=== PATIENT | female | born 1980 | race Caucasian/White ===

== ENCOUNTER → 2017-01-15 | Outpatient (CLI) | payer OTHER | LOC: FIMAGING 13:46 | PROVIDERS: ATTEND Obstetrics & Gynecology | DX: O09.523 Supervision of elderly multigravida, third trimester (principal); O09.213 Supervision of pregnancy with history of pre-term labor, third trimester; Z3A.32 32 weeks gestation of pregnancy ==

== ENCOUNTER → 2017-02-11 | Outpatient (CLI) | payer OTHER | LOC: FIMAGING 13:56 | PROVIDERS: ATTEND Obstetrics & Gynecology | DX: O09.523 Supervision of elderly multigravida, third trimester (principal); Z3A.36 36 weeks gestation of pregnancy ==

== ENCOUNTER 2017-03-05 09:08 | Inpatient (IN) | payer OTHER ==
[2017-03-05] MEDS ORDERED: LIDOCAINE 1% 30 ML SDV SC PRN (09:29)
[2017-03-05] MEDS ORDERED: OLIVE OIL 118 ML BTL MISC PRN (09:29)
[2017-03-05] MEDS ORDERED: EPSOM SALT 454 GM TP PRN (09:29)
[2017-03-05] MEDS ORDERED: OXYTOCIN/RINGERS LACTATE 1,000 ML IV PRN (09:29)
[2017-03-05] MEDS ORDERED: TERBUTALINE SULFATE 1 MG/ML VIAL IV PRN (09:29)
[2017-03-05] MEDS ORDERED: LR 1,000 ML IV PRN (09:29)
[2017-03-05] MEDS ORDERED: OXYTOCIN/LR *STANDARD DOSE PROTOCOL IV SCH (09:30)
[2017-03-05 11:05] LABS: % IMMATURE GRANULYOCYTES 0.6 % (0.0-1.1); ABSOLUTE IMMATURE GRANULOCYTES 0.06 10^3/uL (0.00-0.10); ADD DIFF? NO; ADD MORPH? NO; ADD SCAN? NO; ATYPICAL LYMPHOCYTE FLAG 20 (0-99); FRAGMENT RBC FLAG 0 (0-99); HEMATOCRIT 37.9 % (38.0-47.0); HEMOGLOBIN 12.7 g/dL (12.6-16.3); LEFT SHIFT FLG 0 (0-99); LIPEMIA HEMOLYSIS FLAG 80 (0-99); MEAN CELL HEMOGLOBIN 32.8 pg (27.9-34.1); MEAN CELL HEMOGLOBIN CONCENTR. 33.5 g/dL (32.4-36.7); MEAN CELL VOLUME 97.9 fL (81.5-99.8); MEAN PLATELET VOLUME 10.7 fL (8.7-11.7); PLATELET CLUMPS FLAG 0 (0-99); PLATELET COUNT 201 10^3/uL (150-400); RED BLOOD CELL COUNT 3.87 10^6/uL (4.18-5.33)
[2017-03-05] MEDS ORDERED: LIDOCAINE 1% 30 ML SDV ONE (12:05)
[2017-03-05] MEDS ORDERED: OLIVE OIL 118 ML BTL ONE (12:06)
[2017-03-05] MEDS ORDERED: AMMONIA AROMATIC 1 EACH AMP IH ONE (12:06)
[2017-03-05] MEDS ORDERED: TERBUTALINE SULFATE 1 MG/ML VIAL ONE (12:06)
[2017-03-05] MEDS ORDERED: OXYTOCIN 10 UNIT/ML VIAL ONE (12:07)
[2017-03-05] MEDS ORDERED: MISOPROSTOL 200 MCG TAB ONE (12:07)
--- NOTE | 2017-03-05 13:42 | OBPROG ---
OBG Progress Note Assessment/Plan: Assessment: 36 yo @ 39 4/7, elective IOL Plan: 03/05/17 13:41 FWB reassuring. GBS neg. Expect . Subjective: 36 yo @ 39 4/7, elective IOL Objective: 03/05/17 10:30 Patient ABO/Rh A POSITIVE 03/05/17 10:30 VSS - SVE Dilation (cm): 3 Effacement (%): 50 Station: -2 Current Contraction Pattern: Regular FHR (bpm): 140 FHR Pattern Variability: Moderate FHR Category: 2 Membranes: AROM Amniotic Fluid Color: Clear ICD10 Worksheet Patient Problems: Problems Problem Status Onset Labor established Acute
[2017-03-05] MEDS ORDERED: BUPIVACAINE 0.25% 30 ML SDV ONE (14:03)
[2017-03-05] MEDS ORDERED: fentaNYL 2MCG/ML/BUP 0.1% RTU 100 ML BAG EP ONE (14:03)
[2017-03-05] MEDS ORDERED: PHENYLEPHRINE HCL 100 MCG/ML SYR ONE (14:03)
[2017-03-05] MEDS ORDERED: fentaNYL 100 MCG/2 ML INJ ONE ×2 (14:04→17:26)
[2017-03-05] MEDS ORDERED: ONDANSETRON 4 MG/2 ML VIAL IVP PRN (16:58)
[2017-03-05] MEDS ORDERED: PHENYLEPHRINE HCL 100 MCG/ML SYR IVP PRN (16:58)
[2017-03-05] MEDS ORDERED: LR 500 ML IV SCH (17:00)
[2017-03-05] MEDS ORDERED: fentaNYL 2MCG/ML/BUP 0.1% RTU 100 ML EP SCH (17:00)
--- NOTE | 2017-03-05 17:08 | PREANESOB ---
Obstetric Pre-Anesthesia Info - General Info Proposed Procedure: Labor and delivery with pitocin. : 2 Para: 1 WBD: 39 - Info Status: Full Term Monitors: External FHR Baseline (bpm): 135 FHR Pattern: Reassuring - Labor Status Cervical Dilation per last OB SVE: 3 Station per last OB SVE: -2 Amniotic Fluid Color: Clear Pitocin: In Use Magnesium Sulfate in Use: No Indications for Labor Analgesia: Induction of Labor, Pain Control Labor Epidural: Proposed Anesthesia ROS: Prior labor epidural. Allergies/Adverse Reactions: Allergy/AdvReac Type Severity Reaction Status Date / Time amoxicillin [Amoxicillin] Allergy Mild Other-Enter Verified 06/04/14 11:17 Comments azithromycin [From Zithromax] Allergy Unknown Diarrhea Verified 06/04/14 11:19 Penicillins Allergy Unknown Verified 03/12/12 14:09 pseudoephedrine HCl Allergy Verified 03/05/17 12:34 [From Sudafed] Home Medications: Medication Instructions Recorded Fish Oil 1,000 mg Capsule 1 tab PO DAILY 06/04/14 Herbals/Supplements -Info Only 5 tab PO DAILY 06/04/14 Ciprofloxacin HCl [Ciprofloxacin 1 - 2 drop RTEYE QID #1 btl 11/28/15 Opth Drops] Doxycycline Hyclate [Vibramycin] 100 mg PO BID #20 cap 11/28/15 Visit Medications: Generic Name Dose Route Start Last Admin Trade Name Jeremyq PRN Reason Stop Dose Admin Diphenhydramine HCl 25 - 50 mg 03/05/17 16:58 Benadryl Injection IVP 09/01/17 16:57 Q6HRS PRN Itching Oxytocin/Lactated Ringer's 500 mls @ 0 mls/hr 03/05/17 09:30 Pitocin 30 Units/Lr (Premix) IV 09/01/17 09:29 CONT HERMELINDO Protocol Per Protocol Lactated Ringer's 1,000 mls @ 0 mls/hr 03/05/17 09:29 Lr IV 09/01/17 09:28 PRN PRN SEE PROTOCOL CONDITIONS Protocol Per Protocol Oxytocin/Lactated Ringer's 1,000 mls @ 150 mls/hr 03/05/17 09:29 Pitocin 20 Units/Lr (Premix) IV PRN PRN Post- bleeding Fentanyl/Bupivacaine HCl 100 mls @ 0 mls/hr 03/05/17 17:00 Fentanyl/Bupivacaine/Ns 2 Mcg/Ml 0.1% (Premix EP 03/15/17 16:59 CONT HERMELINDO Protocol As Directed Lactated Ringer's 500 mls @ 0 mls/hr 03/05/17 17:00 Lr IV 09/01/17 16:59 CONT HERMELINDO As Directed Ibuprofen 600 mg 03/05/17 09:29 Motrin PO 09/01/17 09:28 Q6HRS PRN post , inflammation Lidocaine HCl 30 ml 03/05/17 09:29 Lidocaine Hcl 1% SC 09/01/17 09:28 ONCE PRN Episiotomy Magnesium Sulfate 454 gm 03/05/17 09:29 Epsom Salt TP 09/01/17 09:28 PRN PRN perineal discomfort Roxana Oil 118 ml 03/05/17 09:29 Sweet Oil MISC 09/01/17 09:28 ONCE PRN preneal massage Ondansetron HCl 4 mg 03/05/17 16:58 Zofran IVP 09/01/17 16:57 Q4HRS PRN Nausea/Vomiting, Can't Take PO Phenylephrine HCl 100 mcg 03/05/17 16:58 Elian-Synephrine IVP 09/01/17 16:57 .Q2M PRN Hypotension Terbutaline Sulfate 0.25 mg 03/05/17 09:29 Brethine IV 09/01/17 09:28 ONCE PRN Tachysystole Discontinued Medications Generic Name Dose Route Start Last Admin Trade Name Freq PRN Reason Stop Dose Admin Ammonia (Aromatic Spirit) Confirm 03/05/17 12:06 Ammonia Aromatic Administered 03/05/17 12:07 Dose 1 each IH .STK-MED ONE Bupivacaine HCl Confirm 03/05/17 14:03 Sensorcaine 0.25% Sdv Administered 03/05/17 14:04 Dose 30 ml .ROUTE .STK-MED ONE Fentanyl Confirm 03/05/17 14:04 Sublimaze Administered 03/05/17 14:05 Dose 100 mcg .ROUTE .STK-MED ONE Fentanyl/Bupivacaine HCl Confirm 03/05/17 14:03 Fentanyl/Bupivacaine/Ns 2 Mcg/Ml 0.1% (Premix Administered 03/05/17 14:04 Dose 100 ml EP .STK-MED ONE Lidocaine HCl Confirm 03/05/17 12:05 Lidocaine Hcl 1% Administered 03/05/17 12:06 Dose 30 ml .ROUTE .STK-MED ONE Misoprostol Confirm 03/05/17 12:07 Cytotec Administered 03/05/17 12:08 Dose 1,000 mcg .ROUTE .STK-MED ONE Roxana Oil Confirm 03/05/17 12:06 Sweet Oil Administered 03/05/17 12:07 Dose 118 ml .ROUTE .STK-MED ONE Oxytocin Confirm 03/05/17 12:07 Pitocin Administered 03/05/17 12:08 Dose 30 unit .ROUTE .STK-MED ONE Phenylephrine HCl Confirm 03/05/17 14:03 Elian-Synephrine Administered 03/05/17 14:04 Dose 1,000 mcg .ROUTE .STK-MED ONE Terbutaline Sulfate Confirm 03/05/17 12:06 Brethine Administered 03/05/17 12:07 Dose 1 mg .ROUTE .STK-MED ONE - Anesthesia History Response to Local Anesthetics: Normal - Social History Substance Use/Abuse: Denies - Focused Exam Blood Pressure: 115/70 Heart Rate: 82 Respiratory Rate: 20 Height/Weight (Nursing): Height 175.26 cm Weight 86.183 kg Physical Exam: Within normal limits. ASA Status: II Labs: 03/05/17 10:30 Patient ABO/Rh A POSITIVE 03/05/17 10:30 - Plan Anesthetic Plan: CSE Consent Signed and on Chart: Yes Patient/Guardian Understands and Agrees to Plan: Yes
--- NOTE | 2017-03-05 17:13 | POSTANESTH ---
Post Anesthetic Evaluation Cardiovascular Status: Normal, Stable Respiratory Status: Normal, Stable, Similar to Pre-op Cond. Level of Consciousness/Mental Status: Can Participate in Eval, Alert and Oriented Pain Control: Adequate, Prn Tx Ordered Nausea/Vomiting Control: Adequate, Prn Tx Ordered Complications Possibly Related to Anesthesia: None Noted (Tolerated CSE well, stable, comfortable.)
[2017-03-05] MEDS ORDERED: SIMETHICONE 80 MG TAB CHEW PO PRN (18:25)
[2017-03-05] MEDS ORDERED: HYDROCODONE/APAP 5/325 TAB PO PRN (18:25)
[2017-03-05] MEDS ORDERED: HYDROCORTISONE 0.5% CREAM TP PRN (18:25)
--- NOTE | 2017-03-05 18:25 | OBPROC ---
- Labor and Delivery Onset of Contractions Date: 03/05/17 Onset of Contractions Time: 11:00 Onset of Contractions Type: Induced Rupture of Membranes Date: 03/05/17 Rupture of Membranes Time: 13:00 Rupture of Membranes Type: Artificial Amniotic Fluid Color: Clear Dilation Complete Time: 17:50 Delivery Type: Spontaneous Placenta Delivery Date: 03/05/17 Episiotomy/Laceration: 2nd Degree Repair: 3-0, Vicryl EBL: 200 ml Complications: None - Medications Labor Augmentation/Induction Meds Used: Pitocin, Other (Specify) (elective) Labor Augmentation/Induction Indication: Elective Anesthesia: Epidural - Info Infant A Delivery Date: 03/05/17 Delivery Time: 18:10 Sex of : Female Score (1 Min): 7 Score (5 Min): 9
[2017-03-05] MEDS ORDERED: OXYTOCIN/RINGERS LACTATE 1,000 ML IV SCH (18:30)
[2017-03-05] MEDS: IBUPROFEN 600 MG TAB PO PRN (18:54)
[2017-03-06] MEDS: IBUPROFEN 600 MG TAB PO PRN ×4 (02:06→20:37)
--- NOTE | 2017-03-06 07:51 | SOAPPROG ---
SOAP Progress Note Assessment/Plan: Assessment: 36 y.o. female s/p PPD #1. Recovering well with good pain relief. Plan: Routine care. consult PRN. Anticipate discharge tomorrow. 03/06/17 07:47 Subjective: Reports having good pain control with minimal vaginal bleeding. . Eating and drinking well without nausea or vomiting. Up to restroom and voiding without difficulty. Denies vertigo. Appropriate mood with good support system. Objective: Vital Signs Temp Pulse Resp BP Pulse Ox 36.6 C 70 20 99/60 L 94 03/05/17 21:20 03/05/17 21:20 03/05/17 21:20 03/05/17 21:20 03/05/17 21:20 Laboratory Results 03/05/17 10:30 03/05/17 03/06/17 03/07/17 05:59 05:59 05:59 Output Total 200 Balance -200 - Time Spent With Patient Time Spent With Patient: 20 minutes - Pending Discharge Pending Discharge Within 24 Hours: Yes Pending Discharge Within 48 Hours: No Pending Discharge Date: 03/07/17 Pending Discharge Time: 11:00 Physical Exam - Physical Exam General Appearance: WD/WN, alert, no apparent distress EENT: normal ENT inspection Neck: non-tender, full range of motion, normal inspection Respiratory: lungs clear, normal breath sounds Cardiac/Chest: regular rate, rhythm Abdomen: non-tender, soft Pelvic Exam: normal external exam Rectal: deferred Back: Normal inspection Skin: normal color, warm/dry Lymphatic: no adenopathy Extremities: normal range of motion, non-tender Neuro/Psych: alert, normal mood/affect, oriented x 3 ICD10 Worksheet Patient Problems: Problems Problem Status Onset Elective induction of labor planned Acute Labor established Acute
[2017-03-06] MEDS: DOCUSATE SODIUM 100 MG CAP PO PRN (07:53)
[2017-03-06 11:50] VITALS: RESP 16
[2017-03-07] MEDS: IBUPROFEN 600 MG TAB PO PRN ×2 (03:13→08:39)
[2017-03-07] MEDS: DOCUSATE SODIUM 100 MG CAP PO PRN (08:39)
--- NOTE | 2017-03-07 08:40 | OBGCSDC ---
General Delivery Information - General Info : 2 Para: 2 Labs: Patient ABO/Rh A POSITIVE 03/05/17 10:30 Hct 37.9 % (38.0-47.0) L 03/05/17 10:30 - [place] Info A Sex of : Female Score (1 Min): 7 Score (5 Min): 9 Vaginal - Diagnosis Labor: Induced Rupture of Membranes Type: Artificial Amniotic Fluid Color: Clear Repair: 3-0, Vicryl Complications: None - Operations/Procedures Delivery Type: Spontaneous - Hospital Course Intrapartum: Uncomplicated : Routine pp care. Stable for discharge on PPD#2 Rh pos. Rub imm. s/p tdap - Delivery EBL: 200 ml Anesthesia: Epidural Discharge Information - Discharge Information Condition: Good Instruction/Follow Up: Six Weeks Discharge Physician/CNM: Pretty Otoole Discharge Date: 03/07/17
[2017-03-07 09:27] VITALS: BP 104/76; PULSE 67; TEMP 98.3; O2SAT 98
== END 2017-03-07 11:40 | disposition home or self-care (01) | DRG 775 ==
LOC: FLD 09:08 → FOB 20:47
PROVIDERS: ADMIT Obstetrics & Gynecology; ATTEND Obstetrics & Gynecology
PROC: 3E033VJ Introduction of Other Hormone into Peripheral Vein, Percutaneous Approach (ICD-10-PCS; principal; 2017-03-05)
PROC: 10E0XZZ Delivery of Products of Conception, External Approach (ICD-10-PCS; principal; 2017-03-05)
PROC: 10907ZC Drainage of Amniotic Fluid, Therapeutic from Products of Conception, Via Natural or Artificial Opening (ICD-10-PCS; principal; 2017-03-05)
PROC: 0KQM0ZZ Repair Perineum Muscle, Open Approach (ICD-10-PCS; principal; 2017-03-05)
DX: O70.1 Second degree perineal laceration during delivery (principal); Z37.0 Single live birth; Z3A.39 39 weeks gestation of pregnancy
CPT/HCPCS: J2370; J2590; J3010; J3105

== ENCOUNTER → 2018-07-11 | Outpatient (CLI) | payer OTHER | LOC: FIMAGING 14:33 | PROVIDERS: ATTEND Obstetrics & Gynecology | DX: N64.4 Mastodynia (principal) ==

== ENCOUNTER → 2019-02-13 | Outpatient (CLI) | payer OTHER | LOC: EMCIMAGING 07:16 | PROVIDERS: ATTEND Obstetrics & Gynecology | DX: N83.02 Follicular cyst of left ovary (principal) | CPT/HCPCS: 76856-PN ==